=== PATIENT | female | born 1940 | race Caucasian/White ===

== ENCOUNTER → 2017-09-10 09:27 | Outpatient (CLI) | payer MEDICARE, OTHER, SELFPAY ==
[2017-09-10] VITALS (7 sets, daily range): BP systolic 117–134; BP diastolic 40–97; PULSE 68–75; RESP 18; TEMP 36.5; O2SAT 96–100
--- NOTE | 2017-09-10 09:30 | DI.RAD.S_ITS ---
PROCEDURE: PAIN L INTERLAMINAR/CAUDAL INJ INDICATIONS: spinal stenosis FINDINGS: Fluoroscopic spot filming was performed to verify placement of spinal needles at the L4-5 level(s), as labeled on the films. Appropriate location(s) of the needle tip(s) was confirmed by injection of iodinated contrast. IMPRESSION: Intraoperative injections with image verification. Dictated by: Palmer Mckeon M.D. on 09/10/2017 at 12:47 Approved by: Palmer Mckeon M.D. on 09/10/2017 at 12:48
--- NOTE | 2017-09-10 11:27 | P.PCN_ITS ---
Procedures Date/Time Date of procedure: 09/10/17 Time of procedure: 11:05 General Procedure description: PATIENT: Rosalinda Gibson DATE OF : 1940 DATE OF SURGERY: 09/10/2017 PROVIDER: Akhil Estrada DO Operative Note PREOP DIAGNOSIS 1. HNP WITH RADICULAR FEATURES, 2. MULTILEVEL CENTRAL STENOSIS, POST OP DIAGNOSIS 1. HNP WITH RADICULAR FEATURES, 2. MULTILEVEL CENTRAL STENOSIS, PROCEDURES 1. FLUORSCOPICALLY GUIDED CONTRAST CONTROLLED INTERLAMINAR EPIDURAL STEROID INJECTION - L5/S1 PHYSICIAN: Akhil Estrada DO INDICATIONs: [] is referred by [] for treatment of Bilateral Foraminal Stenosis R>L LE symptoms. FINDINGS Multilevel Central Spinal Stenosis with Nerve Root Compression DESCRIPTION OF PROCEDURE Fluoroscopically guided, contrast-controlled L5/S1 translaminar epidural steroid injection. Following denial of allergy and review of potential side effects and complications, including, but not necessarily limited to, infection, allergic reaction, local tissue breakdown, temporary as well as permanent nerve injury, paralysis, stroke and possible , the patient indicated that the patient understood and agreed to proceed. An informed consent document was signed by the patient, witnessed by a nurse, and placed in the patient's chart. Additionally, other treatment options including modalities, medications, and physical therapy were reviewed with the patient. Per the patient request, IV conscious sedation was administered via 3mg of Versed to patient comfort. The patient's vital signs were monitored throughout the procedure by both the nurse and the physician without significant fluctuation. The patient remained conversant throughout the procedure. In the prone position, following sterile prep and drape of the lumbar region, the L5/S1 translaminar space was identified fluoroscopically. The skin was anesthetized via a 25-gauge, 1.5-inch needle with 1% lidocaine solution. At this point, a 22-gauge short bevel spinal needle was atraumatically introduced and advanced under fluoroscopic guidance into the region of the L4/5 translaminar space. Depth was confirmed on lateral view. Radiological data, including multiple fluoroscopic views of the lumbar spine, reveal a spinal needle at the L5/S1 translaminar space. Lateral views then show placement of the needle in the epidural space. Subsequent views show contrast material flowing superiorly and inferiorly in the epidural space. No vascular or intrathecal uptake is observed. At this point, using loss of resistance technique with saline and air, the epidural space was entered. This was confirmed following negative aspiration with injection of approximately 1.5 cc of Isovue 200, showing excellent epidural flow without vascular or intrathecal uptake. At this point, 1 cc of 1 % lidocaine solution combined with 3 cc or 20 mg of dexamethasone and 80mg Depo medrol was injected without incident. The patient was then transferred to the recovery area where they were observed for an appropriate period of time after the injection. The patient reported a VAS score of 6 prior to the procedure and a post-procedure VAS of 0. Total Fluoroscopy Time: 21 seconds Total Conscious Sedation Time: 24min POST OP INSTRUCTIONS The patient was provided a Pain Log to continue to record their response to the target-specific procedure prior to follow-up visit with their referring physician. Additionally, specific post-injection care instructions and a contact number to our office were provided if concerns arise regarding possible complications associated with the procedure are suspected. Akhil Estrada DO Complications: none
[2017-09-10] MEDS: methylPREDNISolone acetate 80 MG/ML VIAL INJ (11:43)
[2017-09-10] MEDS: DEXAMETHASONE 10 MG/ML VIAL 20 MG INJ (11:43)
[2017-09-10] MEDS: BUPIVACAINE 0.25% (PF) 30 ML VIAL INJ (11:43)
[2017-09-10] MEDS: IOPAMIDOL 15 ML VIAL INJ (11:43)
[2017-09-10] MEDS: MIDAZOLAM 2 MG/2 ML VIAL 4 MG IV (11:43)
== END | disposition home or self-care (01) ==
PROVIDERS: PCP Internal Medicine; Visit Provider Physical Medicine & Rehabilitation
DX: M48.061 Spinal stenosis, lumbar region without neurogenic claudication (principal); M54.5 Low back pain; M54.17 Radiculopathy, lumbosacral region
CPT/HCPCS: 62323; 99152; J1040; J1100; J2250

== ENCOUNTER 2017-10-08 10:27 | Outpatient (CLI) | payer MEDICARE, OTHER, SELFPAY ==
[2017-10-08] VITALS (7 sets, daily range): BP systolic 123–144; BP diastolic 48–84; PULSE 64–86; RESP 10–18; TEMP 36.4; O2SAT 99–100
--- NOTE | 2017-10-08 10:28 | DI.RAD.S_ITS ---
PROCEDURE: PAIN L/SI FACET INJ/BLK 1STL INDICATIONS: SPONDYLOSIS STENOSIS AND DISC DEGENERATION FINDINGS: Fluoroscopic spot filming was performed to verify placement of spinal needles at the left L4-5 facet joint and the right L4-5 facet joint level(s), as labeled on the films. Appropriate location(s) of the needle tip(s) was confirmed by injection of iodinated contrast. IMPRESSION: Successful right and left L4-5 facet joint localization for presumed steroid injection. Dictated by: Gareth Regan M.D. on 10/08/2017 at 12:40 Approved by: Gareth Regan M.D. on 10/08/2017 at 12:41
--- NOTE | 2017-10-08 11:07 | P.PCN_ITS ---
Procedures Date/Time Date of procedure: 10/08/17 Time of procedure: 16:07 General Procedure description: PREOP DIAGNOSIS 1. FACET ARTHROPATHY 2. AXIAL LBP 3. MULTILEVEL DDD POST OP DIAGNOSIS 1. FACET ARTHROPATHY 2. AXIAL LBP 3. MULTILEVEL DDD PROCEDURES 1. FLUORSCOPICALLY GUIDED CONTRAST CONTROLLED FACET JOINT INJECTIONS BILATERAL L4/5, L5/S1 PHYSICIAN: Akhil Estrada, DO [place] Chantelle is referred by Dr. Jones for treatment of Axial LBP FINDINGS Multilevel Facet Arthropathy with Clinically significant axial LBP DESCRIPTION OF PROCEDURE Fluoroscopically guided, contrast-controlled bilateral L4/5 facet joint injections. Following denial of allergy and review of potential side effects and complications, including, but not necessarily limited to, infection, allergic reaction, local tissue breakdown, stroke, temporary or permanent nerve injury, paralysis, and possible , the patient indicated that the patient understood and agreed to proceed. An informed consent document was signed by the patient, witnessed by a nurse, and placed in the patient's chart. Additionally, other treatment options including medications, modalities, and physical therapy were reviewed with the patient. Per the patient request, IV conscious sedation was administered via 3mg of Versed to patient comfort. The patient's vital signs were monitored throughout the procedure by both the nurse and the physician without significant fluctuation. The patient remained conversant throughout the procedure. In the prone position, following sterile prep and drape of the lumbar region, the posterior aspect of the L4/5 facet joints were identified fluoroscopically. The skin was anesthetized via a 25-gauge 1.5-inch needle with 1% lidocaine solution into the corresponding facet joints. At this point, a 22-gauge 3.5- inch spinal needle was atraumatically introduced and advanced under fluoroscopic guidance into the corresponding facet joints. Following negative aspiration, injections of approximately 0.2-cc of Isovue 200 confirmed interarticular placement without vascular uptake. The identical procedure was then performed at the L4/5 facet joints on the left. Radiological data, including multiple fluoroscopic views of the lumbosacral spine, reveal a spinal needle at the L4/5 facet joints bilaterally. Subsequent views show flow of contrast material both superiorly and inferiorly within the joint space without vascular or intrathecal uptake. At this point, a total of 0.5 cc including a mixture of 0.25 cc Marcaine and 0.25 cc betamethasone was injected without complication into each of the corresponding facet joints. The patient was then transferred to the recovery area where they were observed for an appropriate period of time after the injection. The patient reported a VAS score of 7 prior to the procedure and a post-procedure VAS of 0. Total Fluoroscopy Time: 20.3 seconds Total Conscious Sedation Time: 24min POST OP INSTRUCTIONS The patient was provided a Pain Log to continue to record their response to the target-specific procedure prior to follow-up visit with their referring physician. Additionally, specific post-injection care instructions and a contact number to our office were provided if concerns arise regarding possible complications associated with the procedure are suspected. Akhil Estrada DO Complications: none
[2017-10-08] MEDS: MIDAZOLAM 5 MG/5 ML VIAL IV (11:25)
[2017-10-08] MEDS: IOPAMIDOL 15 ML VIAL 3 ML INJ (11:32)
[2017-10-08] MEDS: BETAMETHASONE 30 MG/5 ML MDV 12 MG INJ (11:32)
[2017-10-08] MEDS: LIDOCAINE 1% 20 ML INJ 10 ML INJ (11:32)
[2017-10-08] MEDS: BUPIVACAINE 0.5% (PF) 30 ML VIAL INJ (11:32)
== END 2017-10-08 12:07 | disposition home or self-care (01) ==
LOC: RAD 10:28
PROVIDERS: PCP Internal Medicine; Visit Provider Physical Medicine & Rehabilitation
DX: M47.816 Spondylosis without myelopathy or radiculopathy, lumbar region (principal); M48.061 Spinal stenosis, lumbar region without neurogenic claudication; M51.36 Other intervertebral disc degeneration, lumbar region
CPT/HCPCS: 64493; 99152; J0702; J2250

== ENCOUNTER → 2019-06-22 11:29 | Outpatient (CLI) | payer MEDICARE, OTHER, SELFPAY ==
--- NOTE | 2019-06-22 11:32 | DI.RAD.S_ITS ---
PROCEDURE: XR SHOULDER RT MIN 2V INDICATIONS: right shoulder pain TECHNIQUE: 3 views of the shoulder were acquired. COMPARISON: None. FINDINGS: Bones: No fractures or dislocations. Mild to moderate acromioclavicular joint and glenohumeral joint osteophytic changes are seen. No suspicious bony lesions. Visualized ribs appear intact. Soft tissues: Surgical clips are seen in right axilla. No suspicious soft tissue calcifications. 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 No shoulder fracture or dislocation. Dictated by: Derrell Wayne M.D. on 06/22/2019 at 13:00 Approved by: Derrell Wayne M.D. on 06/22/2019 at 13:04
--- NOTE | 2019-06-22 11:32 | DI.RAD.S_ITS ---
PROCEDURE: XR CERVICAL SPINE 2V OR 3V INDICATIONS: right shoulder pain TECHNIQUE: 3 view(s) of the cervical spine were acquired. COMPARISON: None. FINDINGS: Bones: No fractures or dislocations to the C7-T1 level. Grade 1 anterolisthesis of C3 on C4 is seen. Degenerative endplate changes and bilateral facet hypertrophic changes are noted throughout cervical spine more prominent at C4-5 and C6-7 levels. The lateral masses of C1 appear intact on the odontoid view. No suspicious bony lesions. Soft tissues: No prevertebral soft tissue swelling. IMPRESSION: Degenerative disc disease throughout cervical spine. No acute cervical spine fracture or dislocation. Grade 1 anterolisthesis of C3 on C4. Dictated by: Derrell Wayne M.D. on 06/22/2019 at 12:55 Approved by: Derrell Wayne M.D. on 06/22/2019 at 12:56
== END ==
PROVIDERS: PCP Internal Medicine; Referring Provider Physical Medicine & Rehabilitation; Visit Provider Physical Medicine & Rehabilitation
DX: M75.41 Impingement syndrome of right shoulder (principal); M25.511 Pain in right shoulder; M50.021 Cervical disc disorder at C4-C5 level with myelopathy; M43.12 Spondylolisthesis, cervical region; M19.011 Primary osteoarthritis, right shoulder
CPT/HCPCS: 72040; 73030; 99214

== ENCOUNTER 2020-08-10 13:30 | Outpatient (RCR) | payer MEDICARE, OTHER, SELFPAY ==
--- NOTE | 2020-07-19 15:00 | PT.OPPOC ---
Physical, Occupational & Speech Therapy At [facility] Current Diagnoses Dizziness and giddiness (07/19/20) Visit Care Team Role Provider Type Darien Vizcarra MD Family Provider Non-Staff Primary Care Provider Specialty: Family Practice Address: [address] [place] [address], [id number] Email: Jhoan Guaman MD Attending Provider Physician Referring Provider Specialty: Ear, Nose, Throat Address: [address] [place] [address], [id number] Email: [email or web address] Plan Of Care PT-OP-T Assessment and Plan Start: 07/19/20 07:37 Freq: Status: Active Protocol: Document 07/19/20 11:00 AMB (Rec: 07/20/20 08:12 AMB [email or web address]) Physical Therapy Assessment Rehab Potential Rehabilitation Potential Good Evaluation Complexity Number of Personal Factors/Comorbidities 1-2 Number of Body Systems Impaired 1-2 Clinical Presentation at Evaluation Stable Impairments Impairments Balance,Vestibular Goals Two Impairment Balance Short Term Goal (STG) Chantelle will complete a balance assessment considering her history of falls. STG Duration 4 weeks One Impairment Dizziness Short Term Goal (STG) Chantelle will roll over in bed without dizziness. STG Duration 4 weeks Entertainment Musician Goal (LTG) Chantelle will not have any dizziness or nystagmus with [place]-Hallpike. LTG Duration 6 weeks Assessment Summary Assessment Chantelle attends physical therapy with 3 month history of dizziness, especially with head movement, short in duration. Imaging was negative during ED visit. Positive for symptoms/ nystagmus with Left Sunil- Hallpike, did perform Amandeep maneuver 2x during eval, good tolerance, but did feel a bit of whirling when accidentally tilted head up slightly afterward, so will need to recheck. Overall signs and symptoms of L posterior canalithiasis, will follow up with treatment and then assess overall balance given pt's fall history. Physical Therapy Plan Frequency and Duration Frequency of Treatment 2x/Week Duration of Treatment 6 weeks Plan of Care Start Date 07/19/20 Plan of Care End Date 08/30/20 Therapeutic Interventions Therapeutic Interventions Balance Training,Canalithic Repositioning,Home Exercise Program,Neuromuscular Re- education,Self-Care/Home Management,Therapeutic Activities,Therapeutic Exercises,Vestibular Rehabilitation Next Visit Focus/Plan Next Note Type Treatment Note Next Visit Plan Ss[facility] Rogers Plan of Care Dates Plan of Care Start Date 07/19/20 Plan of Care End Date 08/30/20 Electronically Signed by: Louann Herrmann, PT 07/20/20 0813 Please Sign and Return: I have reviewed this Plan of Care and certify that the skilled therapy services above are required to meet the patient?s needs. Physician Signature Date Printed Name and Credentials Clinical Instructor Signature Printed Name and Credentials
--- NOTE | 2020-07-19 15:00 | PT.OIE ---
Current Diagnoses Dizziness and giddiness (07/19/20) Past Medical History (Last Reviewed 06/22/19 @ 11:01 by ROLDAN Jessica) Asthma Cancer Fracture Obesity Thyroid disease Trochanteric bursitis of right hip Past Surgical History (Last Reviewed 06/22/19 @ 11:01 by ROLDAN Jessica) History of bilateral mastectomy History of hysterectomy History of removal of both ovaries History of tonsillectomy Visit Care Team Role Provider Type Darien Vizcarra MD Family Provider Non-Staff Primary Care Provider Specialty: Family Practice Address: [address] [place] [address], [id number] Email: Jhoan Guaman MD Attending Provider Physician Referring Provider Specialty: Ear, Nose, Throat Address: [address] [place] [address], [id number] Email: [email or web address] Physical Therapy Initial Evaluation PT-OP-A Visit Information Start: 07/19/20 07:37 Freq: Status: Active Protocol: Document 07/19/20 11:00 AMB (Rec: 07/19/20 15:58 AMB [email or web address]) Out-Patient Physical Therapy Visit Information Visit Information Visit Type Initial Evaluation Visit Start Time 11:00 Visit Stop Time 11:45 Total Visit Minutes 45 Visit Number 1 PT-OP-B Current Condition Start: 07/19/20 07:37 Freq: Status: Active Protocol: Document 07/19/20 11:00 AMB (Rec: 07/19/20 11:21 AMB [id number]) Current Condition History of Current Condition Onset Date April 02, 2020 Current Complaints Dizziness History of Current Condition Went to ER because couldn't stand up due to dizziness. R ear is the one that seems to get pressure in it. Moving the head around increases dizziness, looking up doesn't last very long. Describes dizziness as lightheadedness and whirly. Denies nausea. Low grade headaches on the right side, intermittent. 3 falls in last year, one in last 3 months, tripping over garden hose. Prior Functional Status Baseline Function- ADL's Independent Baseline Function- Mobility Independent Personal Factors Other Personal Factors That May Effect osteoporosis, Therapy/Recovery PT-OP-O Vestibular Start: 07/19/20 07:37 Freq: Status: Active Protocol: Document 07/19/20 11:00 AMB (Rec: 07/20/20 08:12 AMB [email or web address]) Vestibular Assessment Screening Tests Vestibular Artery Screen Negative Sharp-Noah Test Negative Positional Testing Sunil-Hallpike Positive Left,Negative Right, Upbeating,< 60 Seconds Rolling Test Negative Left,Negative Right PT-OP-T Assessment and Plan Start: 07/19/20 07:37 Freq: Status: Active Protocol: Document 07/19/20 11:00 AMB (Rec: 07/20/20 08:12 AMB [email or web address]) Physical Therapy Assessment Rehab Potential Rehabilitation Potential Good Evaluation Complexity Number of Personal Factors/Comorbidities 1-2 Number of Body Systems Impaired 1-2 Clinical Presentation at Evaluation Stable Impairments Impairments Balance,Vestibular Goals Two Impairment Balance Short Term Goal (STG) Chantelle will complete a balance assessment considering her history of falls. STG Duration 4 weeks One Impairment Dizziness Short Term Goal (STG) Chantelle will roll over in bed without dizziness. STG Duration 4 weeks Coffee Shop Aide Goal (LTG) Chantelle will not have any dizziness or nystagmus with [place]-Hallpike. LTG Duration 6 weeks Assessment Summary Assessment Chantelle attends physical therapy with 3 month history of dizziness, especially with head movement, short in duration. Imaging was negative during ED visit. Positive for symptoms/ nystagmus with Left Sunil- Hallpike, did perform Amandeep manuever 2x during eval, good tolerance, but did feel a bit of whirling when accidently tilted head up slightly afterward, so will need to recheck. Overall signs and symptoms of L posterior canalithiasis, will follow up with treatment and then assess overall balance given pt's fall history. Physical Therapy Plan Frequency and Duration Frequency of Treatment 2x/Week Duration of Treatment 6 weeks Plan of Care Start Date 07/19/20 Plan of Care End Date 08/30/20 Therapeutic Interventions Therapeutic Interventions Balance Training,Canalithic Repositioning,Home Exercise Program,Neuromuscular Re- education,Self-Care/Home Management,Therapeutic Activities,Therapeutic Exercises,Vestibular Rehabilitation Next Visit Focus/Plan Next Note Type Treatment Note Next Visit Plan Recheck L Sunil-Hallpike
--- NOTE | 2020-07-25 15:46 | PT.OTN ---
Current Diagnoses Dizziness and giddiness (07/25/20) Physical Therapy Treatment Note PT-OP-A Visit Information Start: 07/19/20 07:37 Freq: Status: Active Protocol: Document 07/25/20 07:45 AMB (Rec: 07/25/20 11:08 AMB [id number]) Out-Patient Physical Therapy Visit Information Visit Information Visit Type Treatment Note Visit Start Time 07:45 Visit Stop Time 08:15 Total Visit Minutes 45 Visit Number 2 PT-OP-B Current Condition Start: 07/19/20 07:37 Freq: Status: Active Protocol: Document 07/19/20 11:00 AMB (Rec: 07/19/20 11:21 AMB [id number]) Current Condition History of Current Condition Onset Date April 02, 2020 Current Complaints Dizziness History of Current Condition Went to ER because couldn't stand up due to dizziness. R ear is the one that seems to get pressure in it. Moving the head around increases dizziness, looking up doesn't last very long. Describes dizziness as lightheadedness and whirly. Denies nausea. Low grade headaches on the right side, intermittent. 3 falls in last year, one in last 3 months, tripping over garden hose. Prior Functional Status Baseline Function- ADL's Independent Baseline Function- Mobility Independent Personal Factors Other Personal Factors That May Effect osteoporosis, Therapy/Recovery PT-OP-C Subjective Start: 07/19/20 07:37 Freq: Status: Active Protocol: Document 07/25/20 07:45 AMB (Rec: 07/25/20 11:08 AMB [id number]) OP-PT Subjective Patient Comments Patient Comments Chantelle states the whirlies are better but still there. She can look up and roll to the right just fine, but does still feel a bit off when moving from sit to stand and rolling to the left. PT-OP-O Vestibular Start: 07/19/20 07:37 Freq: Status: Active Protocol: Document 07/19/20 11:00 AMB (Rec: 07/20/20 08:12 AMB [email or web address]) Vestibular Assessment Screening Tests Vestibular Artery Screen Negative Sharp-Noah Test Negative Positional Testing Sunil-Hallpike Positive Left,Negative Right, Upbeating,< 60 Seconds Rolling Test Negative Left,Negative Right PT-OP-Q Treatments Start: 07/19/20 07:37 Freq: Status: Active Protocol: Document 07/25/20 07:45 AMB (Rec: 07/25/20 11:08 AMB [id number]) Canalithic Repositioning BPPV Treatment Amandeep Affected Canal(s) L Reps 2 Comments No nystagmus noted, pt pt was symptomatic, not as much as at eval, but more so than with DixHallpike R PT-OP-T Assessment and Plan Start: 07/19/20 07:37 Freq: Status: Active Protocol: Document 07/25/20 07:45 AMB (Rec: 07/25/20 11:08 AMB [id number]) Physical Therapy Assessment Assessment Summary Assessment Chantelle did not show nystagmus with Amandeep but was symptomatic, so was treated. Will assess next visit, and if continued no nystagmus and continued sx will assess more VOR/ balance assessment. Physical Therapy Plan Next Visit Focus/Plan Next Note Type Treatment Note Next Visit Plan L Sunil-Hallpike and then check VOR
--- NOTE | 2020-08-03 08:53 | PT.OTN ---
Current Diagnoses Dizziness and giddiness (08/03/20) Physical Therapy Treatment Note PT-OP-A Visit Information Start: 07/19/20 07:37 Freq: Status: Active Protocol: Document 08/03/20 08:15 AMB (Rec: 08/03/20 08:48 AMB [id number]) Out-Patient Physical Therapy Visit Information Visit Information Visit Type Treatment Note Visit Start Time 08:15 Visit Stop Time 09:00 Total Visit Minutes 45 Visit Number 3 PT-OP-B Current Condition Start: 07/19/20 07:37 Freq: Status: Active Protocol: Document 07/19/20 11:00 AMB (Rec: 07/19/20 11:21 AMB [id number]) Current Condition History of Current Condition Onset Date April 02, 2020 Current Complaints Dizziness History of Current Condition Went to ER because couldn't stand up due to dizziness. R ear is the one that seems to get pressure in it. Moving the head around increases dizziness, looking up doesn't last very long. Describes dizziness as lightheadedness and whirly. Denies nausea. Low grade headaches on the right side, intermittent. 3 falls in last year, one in last 3 months, tripping over garden hose. Prior Functional Status Baseline Function- ADL's Independent Baseline Function- Mobility Independent Personal Factors Other Personal Factors That May Effect osteoporosis, Therapy/Recovery PT-OP-C Subjective Start: 07/19/20 07:37 Freq: Status: Active Protocol: Document 08/03/20 08:15 AMB (Rec: 08/03/20 08:48 AMB [id number]) OP-PT Subjective Patient Comments Patient Comments She did get dizzy when coming up from cleaning the toilet, but otherwise has not been dizzy, no dizziness rolling over in bed or when looking up . PT-OP-O Vestibular Start: 07/19/20 07:37 Freq: Status: Active Protocol: Document 07/19/20 11:00 AMB (Rec: 07/20/20 08:12 AMB [email or web address]) Vestibular Assessment Screening Tests Vestibular Artery Screen Negative Sharp-Noah Test Negative Positional Testing Sunil-Hallpike Positive Left,Negative Right, Upbeating,< 60 Seconds Rolling Test Negative Left,Negative Right PT-OP-Q Treatments Start: 07/19/20 07:37 Freq: Status: Active Protocol: Document 08/03/20 08:15 AMB (Rec: 08/03/20 08:48 AMB [id number]) Neuro Re-Education Treatment Vestibular Rehabilitation VOR Retraining Background plain Reps/Duration 2 min Other Activities 1 Details L Amandeep Comments asymptomatic PT-OP-T Assessment and Plan Start: 07/19/20 07:37 Freq: Status: Active Protocol: Document 08/03/20 08:15 AMB (Rec: 08/03/20 08:48 AMB [id number]) Physical Therapy Assessment Assessment Summary Assessment No nystagmus with Amandeep. Did have some symptoms, but skin fitter today. Physical Therapy Plan Next Visit Focus/Plan Next Note Type Treatment Note Next Visit Plan Recheck VOR, assess headache
--- NOTE | 2020-08-10 15:00 | PT.OTN ---
Current Diagnoses Dizziness and giddiness (08/10/20) Physical Therapy Treatment Note PT-OP-A Visit Information Start: 07/19/20 07:37 Freq: Status: Active Protocol: Document 08/10/20 13:30 AMB (Rec: 08/10/20 16:03 AMB [email or web address]) Out-Patient Physical Therapy Visit Information Visit Information Visit Type Treatment Note Visit Start Time 13:30 Visit Stop Time 14:10 Total Visit Minutes 40 Visit Number 4 PT-OP-B Current Condition Start: 07/19/20 07:37 Freq: Status: Active Protocol: Document 07/19/20 11:00 AMB (Rec: 07/19/20 11:21 AMB [id number]) Current Condition History of Current Condition Onset Date April 02, 2020 Current Complaints Dizziness History of Current Condition Went to ER because couldn't stand up due to dizziness. R ear is the one that seems to get pressure in it. Moving the head around increases dizziness, looking up doesn't last very long. Describes dizziness as lightheadedness and whirly. Denies nausea. Low grade headaches on the right side, intermittent. 3 falls in last year, one in last 3 months, tripping over garden hose. Prior Functional Status Baseline Function- ADL's Independent Baseline Function- Mobility Independent Personal Factors Other Personal Factors That May Effect osteoporosis, Therapy/Recovery PT-OP-C Subjective Start: 07/19/20 07:37 Freq: Status: Active Protocol: Document 08/10/20 13:30 AMB (Rec: 08/14/20 09:03 AMB [email or web address]) OP-PT Subjective Patient Comments Patient Comments Chantelle felt a litte off at times but very rarely and doesn't have any more spinning . PT-OP-O Vestibular Start: 07/19/20 07:37 Freq: Status: Active Protocol: Document 07/19/20 11:00 AMB (Rec: 07/20/20 08:12 AMB [email or web address]) Vestibular Assessment Screening Tests Vestibular Artery Screen Negative Sharp-Noah Test Negative Positional Testing [place]-Hallpike Positive Left,Negative Right, Upbeating,< 60 Seconds Rolling Test Negative Left,Negative Right PT-OP-Q Treatments Start: 07/19/20 07:37 Freq: Status: Active Protocol: Document 08/10/20 13:30 AMB (Rec: 08/14/20 09:03 AMB [email or web address]) Neuro Re-Education Treatment Vestibular Rehabilitation VOR Retraining Background plain Reps/Duration 2 min Comments WBOS then NBOS Other Activities 2 Details Salvatore Mcnulty Comments for habituation 1 Details L Amandeep Comments asymptomatic PT-OP-T Assessment and Plan Start: 07/19/20 07:37 Freq: Status: Active Protocol: Document 08/10/20 13:30 AMB (Rec: 08/14/20 09:03 AMB [email or web address]) Physical Therapy Assessment Goals Two Impairment Balance Short Term Goal (STG) Chantelle will complete a balance assessment considering her history of falls. STG Duration 4 weeks One Impairment Dizziness Short Term Goal (STG) Chantelle will roll over in bed without dizziness. STG Duration MET Group Home Goal (LTG) Chantelle will not have any dizziness or nystagmus with Sunil-Hallpike. LTG Duration MET Assessment Summary Assessment Chantelle did not have any nystagmus today, she had slight feeling of being off with Hafsa to the L, so did give as a habituation HEP. Explained it can take a while to feel completely normal again, but she should call if true spinning dizziness returns. Physical Therapy Plan Hold Physical Therapy Reason For Hold BPPV sx seem resolved, hold for one month to make sure, pt to call/email if needs further appts, if not will d/c in on month
--- NOTE | 2020-09-13 08:08 | PT.OPDS ---
Current Diagnoses Dizziness and giddiness (08/10/20) Visit Care Team Role Provider Type Darien Vizcarra MD Family Provider Non-Staff Primary Care Provider Specialty: Family Practice Address: [address] [place] [address], [id number] Email: Jhoan Guaman MD Attending Provider Physician Referring Provider Specialty: Ear, Nose, Throat Address: [address] [place] [address], [id number] Email: [email or web address] Visit Number Visit Number 4 Discharge Summary PT-OP-B Current Condition Start: 07/19/20 07:37 Freq: Status: Active Protocol: Document 07/19/20 11:00 AMB (Rec: 07/19/20 11:21 AMB [id number]) Current Condition History of Current Condition Onset Date April 02, 2020 Current Complaints Dizziness History of Current Condition Went to ER because couldn't stand up due to dizziness. R ear is the one that seems to get pressure in it. Moving the head around increases dizziness, looking up doesn't last very long. Describes dizziness as lightheadedness and whirly. Denies nausea. Low grade headaches on the right side, intermittent. 3 falls in last year, one in last 3 months, tripping over garden hose. Prior Functional Status Baseline Function- ADL's Independent Baseline Function- Mobility Independent Personal Factors Other Personal Factors That May Effect osteoporosis, Therapy/Recovery PT-OP-C Subjective Start: 07/19/20 07:37 Freq: Status: Active Protocol: Document 08/10/20 13:30 AMB (Rec: 08/14/20 09:03 AMB [email or web address]) OP-PT Subjective Patient Comments Patient Comments Chantelle felt a litte off at times but very rarely and doesn't have any more spinning . PT-OP-O Vestibular Start: 07/19/20 07:37 Freq: Status: Active Protocol: Document 07/19/20 11:00 AMB (Rec: 07/20/20 08:12 AMB [email or web address]) Vestibular Assessment Screening Tests Vestibular Artery Screen Negative Sharp-Noah Test Negative Positional Testing [place]-Hallpike Positive Left,Negative Right, Upbeating,< 60 Seconds Rolling Test Negative Left,Negative Right PT-OP-T Assessment and Plan Start: 07/19/20 07:37 Freq: Status: Active Protocol: Document 09/13/20 08:07 AMB (Rec: 09/13/20 08:08 AMB [email or web address]) Physical Therapy Assessment Goals Two Impairment Balance Short Term Goal (STG) Chantelle will complete a balance assessment considering her history of falls. STG Duration 4 weeks One Impairment Dizziness Short Term Goal (STG) Chantelle will roll over in bed without dizziness. STG Duration MET Lithographic Artist Goal (LTG) Chantelle will not have any dizziness or nystagmus with Sunil-Hallpike. LTG Duration MET Physical Therapy Plan Discharge Physical Therapy Discharge Reasons Goals Met Next Visit Focus/Plan Next Visit Plan Chantelle did not have any signs of active BPPV at last visit. She was put on hold for 1 month and told to contact the office if she had any return of symptoms. She has not contacted the office, therefore she is discharged at this time.
== END 2020-09-13 08:26 | disposition home or self-care (01) ==
LOC: PHYS 13:30
PROVIDERS: Family Provider Family Medicine; PCP Family Medicine; Referring Provider Otolaryngology; Visit Provider Otolaryngology
DX: R42 Dizziness and giddiness (principal)
CPT/HCPCS: 95992; 97112; 97161

== ENCOUNTER → 2022-03-23 08:41 | Outpatient (CLI) | payer MEDICARE, OTHER, SELFPAY ==
--- NOTE | 2022-03-23 08:42 | DI.RAD.S_ITS ---
PROCEDURE: XR KNEE RT 3V INDICATIONS: RIGHT KNEE PAIN TECHNIQUE: 3 views of the knee were acquired. COMPARISON: None. FINDINGS: Bones: No fractures or dislocations. Mild degenerative changes. No suspicious bony lesions. Soft tissues: No joint effusion. No suspicious soft tissue calcifications. IMPRESSION: Mild degenerative changes. Dictated by: Spencer Pacheco M.D. on 03/23/2022 at 11:44 Approved by: Spencer Pacheco M.D. on 03/23/2022 at 11:45
--- NOTE | 2022-03-23 08:42 | DI.RAD.S_ITS ---
PROCEDURE: XR LUMBAR SPINE MIN 4V INDICATIONS: BACK PAIN TECHNIQUE: 5 views of the lumbar spine were acquired, including bilateral oblique views. COMPARISON: None. FINDINGS: Bones: 5 nonrib-bearing vertebrae are present. There is 9 mm anterolisthesis of L4 on L5. Loss of disc height, degenerative endplate changes and bilateral facet arthrosis throughout lumbar spine is seen most notably at L4-5 and L5-S1 levels.. No vertebral body compression fractures. No suspicious bony lesions. Soft tissues: Overlying bowel gas pattern is normal. No suspicious soft tissue calcifications. Surgical clips are seen in the region of bilateral breasts suggest clinical correlation. Oblique images: No pars defects. IMPRESSION: Degenerative disc disease throughout lumbar spine most notably at L4-5 and L5-S1 levels. No acute compression fracture. 9 mm anterolisthesis of of L4 on L5. No gross pars defects seen on oblique views. Dictated by: Derrell Wayne M.D. on 03/23/2022 at 9:13 on 03/23/2022 at 9:11 a.m. Approved by: Derrell Wayne M.D. on 03/23/2022 at 9:13
== END ==
PROVIDERS: Family Provider Family Medicine; PCP Family Medicine; Referring Provider Physical Medicine & Rehabilitation; Visit Provider Physical Medicine & Rehabilitation
DX: M25.561 Pain in right knee (principal); M51.36 Other intervertebral disc degeneration, lumbar region; M51.37 Other intervertebral disc degeneration, lumbosacral region; M43.16 Spondylolisthesis, lumbar region; M48.061 Spinal stenosis, lumbar region without neurogenic claudication
CPT/HCPCS: 72110; 73562

== ENCOUNTER 2022-04-10 12:15 | Outpatient (CLI) | payer MEDICARE, OTHER, SELFPAY ==
[2022-04-10] VITALS (9 sets, daily range): BP systolic 98–137; BP diastolic 53–61; PULSE 64–77; RESP 16–21; TEMP 36.9; O2SAT 99–100
--- NOTE | 2022-04-10 12:18 | DI.RAD.S_ITS ---
PROCEDURE: PAIN L/S TRANSFORAMINAL INJECT INDICATIONS: SPONDYLOSIS COMPARISON: [facility], CR, XR LUMBAR SPINE MIN 4V, 03/23/2022, 8:51. FINDINGS: Fluoroscopic spot filming was performed to verify placement of a spinal needle at the L4-L5 level, as labeled on the films. Appropriate location of the needle tip was confirmed by injection of iodinated contrast. IMPRESSION: Intraprocedural examination within normal limits. Dictated by: Lizandro Zacarias M.D. on 04/10/2022 at 13:08 Approved by: Lizandro Zacarias M.D. on 04/10/2022 at 13:08
[2022-04-10] MEDS: MIDAZOLAM 2 MG/2 ML VIAL IV (13:27)
[2022-04-10] MEDS: BUPIVACAINE 0.5% (PF) VIAL 5 ML SUBCUT (13:32)
[2022-04-10] MEDS: IOPAMIDOL 15 ML VIAL 3 ML INJ (13:33)
[2022-04-10] MEDS: DEXAMETHASONE 10 MG/ML VIAL 20 MG INJ (13:34)
[2022-04-10] MEDS: BETAMETHASONE 30 MG/5 ML MDV 6 MG INJ (13:34)
--- NOTE | 2022-04-10 13:43 | P.PCN_ITS ---
Date/Time/Diagnoses Date of procedure: 04/10/22 Time of procedure: 13:43 Pre-procedure diagnosis: 1. FORAMINAL STENOSIS WITH LE SYMPTOMS Post-procedure diagnosis: same Procedure Notes Procedure: 1. FLUOROSCOPICALLY GUIDED CONTRAST CONTROLLED TRANSFORAMINAL EPIDURAL STEROID INJECTION - RIGHT L4/5 TFESI Indications: Chantelle is referred by Dr. Vizcarra for treatment of Foraminal Stenosis with Right LE Symptoms Physician: Akhil Estrada Total Fluoroscopy time (seconds): 10 Total sedation minutes: 12 Complications: none Procedure in detail & Post-procedure care: FINDINGS Foraminal Nerve Root Compression secondary to disc disease and facet hypertrophy DESCRIPTION OF PROCEDURE Following review of allergy and review of potential side effects and complications, including, but not necessarily limited to, infection, allergic reaction, local tissue breakdown, stroke, temporary or permanent nerve injury, paralysis, and possible , the patient indicated that the patient understood and agreed to proceed. An informed consent document was signed by the patient, witnessed by a nurse, and placed in the patient's chart. Additionally, other treatment options including medications, modalities, and physical therapy were reviewed with the patient. After review of previous anaesthesic history and IV conscious sedation the patient was deemed safe to proceed with today?s procedure with IV conscious sedation as ASA class II designation. Safety time-out was performed to confirm patient ID, procedure to be performed and site of procedure. IV sedation was accomplished with a combination of 2mg of Versed was administered by the RN after DO order, titrated to patient comfort during the course of the procedure while the patient remained responsive to all verbal commands In the prone position following sterile prep and drape of the lumbar region, the right L4/5 posterior neuroforamen was identified fluoroscopically. The skin was anesthetized via a 25-gauge 1.5-inch needle with 1% lidocaine solution. At this point, a 25-gauge 3.5-inch spinal needle was atraumatically introduced and advanced under fluoroscopic guidance through the posterior right L4/5 neuroforamen to approximately the anterior aspect of the canal. Depth was confirmed on lateral view. Following negative aspiration, injection of approximately 1.5cc of Isovue 200 under live fluoroscopy in the AP view confirmed excellent flow along the nerve root, into the epidural space without vascular or intrathecal uptake observed Radiological data, including multiple fluoroscopic views of the lumbosacral s pine, reveal a spinal needle at the right L4/5 posterior neuroforamen. Subsequent views show flow of contrast material flowing superiorly and inferiorly along the nerve root confirming epidural flow. Subsequently, a test dose of 1.5 cc of 1% lidocaine solution was administered and patient was observed for two minutes for signs or symptoms of complications, including abdominal pain, shortness of breath, bilateral upper or lower extremity weakness, nausea and vomiting, prior to steroid injection. At this point, a total of 3cc or 20mg of dexamethasone and 6mg of betamethasone was injected without incident. The procedure tolerated the procedure well without signs or symptoms of complications prior to transfer to the recovery area continued monitoring without incident. The patient was then transferred to the recovery area where they were observed for an appropriate time after the injection. The patient reported a VAS score of 7 prior to the procedure and a post- procedure VAS of 0. POST OP INSTRUCTIONS The patient was provided a Pain Log to continue to record their response to the target-specific procedure prior to follow-up visit with their referring physician. Additionally, specific post-injection care instructions and a contact number to our office were provided if concerns arise regarding possible complications associated with the procedure are suspected.
== END 2022-04-10 14:07 | disposition home or self-care (01) ==
PROVIDERS: Family Provider Family Medicine; PCP Family Medicine; Referring Provider Physical Medicine & Rehabilitation; Visit Provider Physical Medicine & Rehabilitation
DX: M48.061 Spinal stenosis, lumbar region without neurogenic claudication (principal); M51.16 Intervertebral disc disorders with radiculopathy, lumbar region
CPT/HCPCS: 64483; 99152; J0702; J1100; J2250; J3490

== ENCOUNTER → 2022-07-16 10:47 | Outpatient (CLI) | payer MEDICARE, SELFPAY ==
--- NOTE | 2022-07-16 10:48 | DI.MRI.S_ITS ---
PROCEDURE: MR LUMBAR SPINE WO CON INDICATIONS: Low back pain right lower extremity radicular features TECHNIQUE: Noncontrast sagittal T1 spin echo and T2 fast echo, sagittal STIR, and T2 fast spin echo through the lumbar spine. In cases with scoliosis, additional coronal T2 fast spin echo may be performed. COMPARISON: [facility], CR, XR LUMBAR SPINE MIN 4V, 03/23/2022, 8:51. [facility], MR, L-SPINE WITHOUT CONTRAST, 04/17/2017, 13:59. FINDINGS: Image quality: Excellent. Alignment and Curvature: There is grade 1 L4 on L5 anterolisthesis which is slightly increased in extent when compared with the study dated April 17, 2017. Otherwise normal spinal alignment. Bone Marrow: Marrow is of normal overall signal. A moderate compression deformity is present at the L1 vertebral body which is new when compared with the prior study from 2017. There is approximately 40% vertebral body height loss. No focal marrow edema at the margins of the fracture. A subtle STIR/T2 hyperintense focus is present within the right aspect of the L1 vertebral body which was present on the 2017 study suggesting a small intraosseous hemangioma. Spinal Cord: Conus medullaris terminates at the L1 level. Visualized cord demonstrates normal signal and size. Paraspinous Soft Tissues: 2 large T2 hyperintense right upper quadrant lesions are redemonstrated suggesting the presence of large hepatic cysts which are incompletely characterized on this limited view. There is a questionable circumscribed 1.8 cm lesion within the right sacrum (series 6/image 32). This is incompletely characterized on the limited view of the pelvis. T12-L1: Mild disc desiccation and height loss. Broad-based disc bulge. No foraminal stenosis. L1-L2: Mild disc desiccation and height loss. Broad-based disc bulge. Mild facet and ligamentum flavum hypertrophy. No canal stenosis. L2-L3: Mild disc desiccation and height loss. Broad-based disc bulge. Moderate facet and ligamentum flavum hypertrophy. No canal stenosis. Mild bilateral neural foraminal stenosis. L3-L4: Mild disc desiccation and height loss. Moderate facet and ligamentum flavum hypertrophy. No canal stenosis. Moderate bilateral foraminal stenosis. L4-L5: Severe disc desiccation and height loss. Anterolisthesis. Severe facet and ligamentum flavum hypertrophy. Severe canal stenosis. Severe right and mild left foraminal narrowing. These findings are increased in extent when compared with the MRI dated April 17, 2017. L5-S1: Mild disc desiccation. Broad-based disc bulge. Moderate facet sclerosis. No canal stenosis. Mild bilateral foraminal stenosis. IMPRESSION: 1. Large T2 hyperintense, presumably cystic lesions within the liver which are incompletely characterized. If further characterization is warranted, ultrasound or CT of the liver could be used. 2. New compression deformity along the right superior L1 endplate when compared with the 2017 study. The acuity of this finding is unknown; however there is no discrete marrow edema along the margins of the fracture suggesting this is a chronic process. 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 3. Severe disc desiccation and height loss, anterolisthesis, and severe facet and ligamentum flavum hypertrophy at L4-5 with resultant severe canal stenosis, increased in extent when compared with the 2017 study. 4. Severe right L4-5 foraminal stenosis. 5. No other significant foraminal narrowing or canal stenosis of the lumbar spine. Dictated by: Iveth Olivarez M.D. on 07/16/2022 at 12:30 Approved by: Iveth Olivarez M.D. on 07/16/2022 at 12:58
== END ==
PROVIDERS: Family Provider Family Medicine; PCP Family Medicine; Referring Provider Physical Medicine & Rehabilitation; Visit Provider Physical Medicine & Rehabilitation
DX: M48.061 Spinal stenosis, lumbar region without neurogenic claudication (principal); M43.16 Spondylolisthesis, lumbar region; M48.56XA Collapsed vertebra, not elsewhere classified, lumbar region, initial encounter for fracture; D18.09 Hemangioma of other sites
CPT/HCPCS: 72148

== ENCOUNTER 2022-08-30 09:43 | Outpatient (CLI) | payer MEDICARE, SELFPAY ==
[2022-08-30] VITALS (7 sets, daily range): BP systolic 116–147; BP diastolic 52–79; PULSE 64–72; RESP 15–23; TEMP 37; O2SAT 99–100
--- NOTE | 2022-08-30 09:44 | DI.RAD.S_ITS ---
PROCEDURE: PAIN L/S TRANSFORAMINAL INJECT INDICATIONS: SPONDYLOSIS COMPARISON: [facility], , PAIN L/S TRANSFORAMINAL INJECT, 04/10/2022, 14:31. FINDINGS: Fluoroscopic spot filming was performed to verify placement of a spinal needle at the L4-L5 level, as labeled on the films. Appropriate location of the needle tip was confirmed by injection of iodinated contrast. IMPRESSION: Intraprocedural examination within normal limits. Dictated by: Lizandro Zacarias M.D. on 08/30/2022 at 15:07 Approved by: Lizandro Zacarias M.D. on 08/30/2022 at 15:07
[2022-08-30] MEDS: MIDAZOLAM 2 MG/2 ML VIAL IV (10:56)
[2022-08-30] MEDS: IOPAMIDOL 15 ML VIAL 3 ML INJ (11:03)
[2022-08-30] MEDS: BETAMETHASONE 30 MG/5 ML MDV 6 MG INJ (11:04)
[2022-08-30] MEDS: BUPIVACAINE 0.25% (PF) VIAL 2 ML INJ (11:04)
[2022-08-30] MEDS: DEXAMETHASONE 10 MG/ML VIAL 20 MG INJ (11:04)
--- NOTE | 2022-08-30 11:12 | P.PCN_ITS ---
Date/Time/Diagnoses Date of procedure: 08/30/22 Time of procedure: 11:12 Pre-procedure diagnosis: 1. FORAMINAL STENOSIS WITH LE SYMPTOMS Post-procedure diagnosis: same Procedure Notes Procedure: 1. FLUOROSCOPICALLY GUIDED CONTRAST CONTROLLED TRANSFORAMINAL EPIDURAL STEROID INJECTION - RIGHT L4/5 TFESI Indications: Chantelle is referred by Dr. Vizcarra for treatment of Foraminal Stenosis with Right LE Symptoms Physician: Akhil Estrada Total Fluoroscopy time (seconds): 12 Total sedation minutes: 13 Complications: none Procedure in detail & Post-procedure care: FINDINGS Foraminal Nerve Root Compression secondary to disc disease and facet hypertrophy DESCRIPTION OF PROCEDURE Following review of allergy and review of potential side effects and complications, including, but not necessarily limited to, infection, allergic reaction, local tissue breakdown, stroke, temporary or permanent nerve injury, paralysis, and possible , the patient indicated that the patient understood and agreed to proceed. An informed consent document was signed by the patient, witnessed by a nurse, and placed in the patient's chart. Additionally, other treatment options including medications, modalities, and physical therapy were reviewed with the patient. After review of previous anaesthesic history and IV conscious sedation the patient was deemed safe to proceed with today?s procedure with IV conscious sedation as ASA class II designation. Safety time-out was performed to confirm patient ID, procedure to be performed and site of procedure. IV sedation was accomplished with a combination of 2mg of Versed was administered by the RN after DO order, titrated to patient comfort during the course of the procedure while the patient remained responsive to all verbal commands In the prone position following sterile prep and drape of the lumbar region, the right L4/5 posterior neuroforamen was identified fluoroscopically. The skin was anesthetized via a 25-gauge 1.5-inch needle with 1% lidocaine solution. At this point, a 25-gauge 3.5-inch spinal needle was atraumatically introduced and advanced under fluoroscopic guidance through the posterior right L4/5 neuroforamen to approximately the anterior aspect of the canal. Depth was confirmed on lateral view. Following negative aspiration, injection of approximately 1.5cc of Isovue 200 under live fluoroscopy in the AP view confirmed excellent flow along the nerve root, into the epidural space without vascular or intrathecal uptake observed Radiological data, including multiple fluoroscopic views of the lumbosacral s pine, reveal a spinal needle at the right L4/5 posterior neuroforamen. Subsequent views show flow of contrast material flowing superiorly and inferiorly along the nerve root confirming epidural flow. Subsequently, a test dose of 1.5 cc of 1% lidocaine solution was administered and patient was observed for two minutes for signs or symptoms of complications, including abdominal pain, shortness of breath, bilateral upper or lower extremity weakness, nausea and vomiting, prior to steroid injection. At this point, a total of 3cc or 20mg of dexamethasone and 6mg of betamethasone was injected without incident. The procedure tolerated the procedure well without signs or symptoms of complications prior to transfer to the recovery area continued monitoring without incident. The patient was then transferred to the recovery area where they were observed for an appropriate time after the injection. The patient reported a VAS score of 7 prior to the procedure and a post- procedure VAS of 0. POST OP INSTRUCTIONS The patient was provided a Pain Log to continue to record their response to the target-specific procedure prior to follow-up visit with their referring physician. Additionally, specific post-injection care instructions and a contact number to our office were provided if concerns arise regarding possible complications associated with the procedure are suspected.
== END 2022-08-30 11:43 | disposition home or self-care (01) ==
PROVIDERS: Family Provider Family Medicine; PCP Family Medicine; Referring Provider Physical Medicine & Rehabilitation; Visit Provider Physical Medicine & Rehabilitation
DX: M48.061 Spinal stenosis, lumbar region without neurogenic claudication (principal); M51.16 Intervertebral disc disorders with radiculopathy, lumbar region
CPT/HCPCS: 64483; 99152; J0702; J1100; J2250; J3490

== ENCOUNTER → 2022-09-14 09:33 | Outpatient (CLI) | payer MEDICARE, SELFPAY ==
--- NOTE | 2022-09-14 09:34 | DI.RAD.S_ITS ---
PROCEDURE: XR HIP W PEL IF DONE RT 2V INDICATIONS: Hip pain TECHNIQUE: AP pelvis with lateral view(s) of the right hip(s). COMPARISON: [facility], XR PELVIS WITH LATERAL HIP RIGHT, 01/28/2017, 14:50. FINDINGS: Bones: No fractures or dislocations. Pelvic ring appears intact. No suspicious bony lesions. Moderate bilateral degenerative hip joint space narrowing. Heterotopic is noted overlying the greater trochanter right. Degenerative changes are present within the lower lumbar spine. Soft tissues: The visualized bowel gas pattern is normal. No suspicious soft tissue calcifications. IMPRESSION: Bilateral hip and spine arthritic change. Dictated by: Jade Boyd M.D. on 09/14/2022 at 15:19 Approved by: Jade Boyd M.D. on 09/14/2022 at 15:19
--- NOTE | 2022-09-14 09:34 | DI.RAD.S_ITS ---
PROCEDURE: XR KNEE RT 3V INDICATIONS: Knee pain TECHNIQUE: 3 views of the knee were acquired. COMPARISON: [facility], CR, XR KNEE RT 3V, 03/23/2022, 8:51. FINDINGS: Bones: No fractures or dislocations. No suspicious bony lesions. Moderate tricompartmental in through triage will through radially. No erosions or periarticular osteophytes. Slight lateral patellar subluxation Soft tissues: No joint effusion. No suspicious soft tissue calcifications. IMPRESSION: Overall moderate tricompartmental arthritic change most severe medially. Dictated by: Jade Boyd M.D. on 09/14/2022 at 15:19 Approved by: Jade Boyd M.D. on 09/14/2022 at 15:20
== END ==
PROVIDERS: Family Provider Family Medicine; PCP Family Medicine; Referring Provider Nurse Practitioner Family; Visit Provider Nurse Practitioner Family
DX: M19.90 Unspecified osteoarthritis, unspecified site (principal)
CPT/HCPCS: 73502; 73562

== ENCOUNTER 2022-12-06 08:42 | Outpatient (CLI) | payer MEDICARE, SELFPAY ==
[2022-12-06] VITALS (9 sets, daily range): BP systolic 83–138; BP diastolic 47–80; PULSE 53–63; RESP 14–24; TEMP 37.1; O2SAT 99–100
--- NOTE | 2022-12-06 08:45 | DI.RAD.S_ITS ---
PROCEDURE: PAIN L/S TRANSFORAMINAL INJECT INDICATIONS: SPONDYLOSIS COMPARISON: [facility], , PAIN L/S TRANSFORAMINAL INJECT, 08/30/2022, 10:59. FINDINGS: Fluoroscopic spot filming was performed to verify placement of a spinal needle at the L4-L5 level, as labeled on the films. Appropriate location of the needle tip was confirmed by injection of iodinated contrast. IMPRESSION: Intraprocedural examination within normal limits. Dictated by: Lizandro Zacarias M.D. on 12/06/2022 at 13:31 Approved by: Lizandro Zacarias M.D. on 12/06/2022 at 13:32
[2022-12-06] MEDS: MIDAZOLAM 2 MG/2 ML VIAL IV (09:33)
[2022-12-06] MEDS: BETAMETHASONE 30 MG/5 ML MDV 6 MG INJ (09:36)
[2022-12-06] MEDS: DEXAMETHASONE 10 MG/ML VIAL INJ (09:36)
[2022-12-06] MEDS: IOPAMIDOL 15 ML VIAL 3 ML INJ (09:36)
[2022-12-06] MEDS: BUPIVACAINE 0.25% (PF) VIAL 2 ML INJ (09:37)
--- NOTE | 2022-12-06 09:56 | P.PCN_ITS ---
Date/Time/Diagnoses Date of procedure: 12/06/22 Time of procedure: 09:56 Pre-procedure diagnosis: 1. FORAMINAL STENOSIS WITH LE SYMPTOMS Post-procedure diagnosis: same Procedure Notes Procedure: 1. FLUOROSCOPICALLY GUIDED CONTRAST CONTROLLED TRANSFORAMINAL EPIDURAL STEROID INJECTION - RIGHT L4/5 TFESI Indications: Chantelle is referred by Dr. Vizcarra for treatment of Foraminal Stenosis with Right LE Symptoms Physician: Akhil Estrada Total Fluoroscopy time (seconds): 25 Total sedation minutes: 19 Complications: none Procedure in detail & Post-procedure care: FINDINGS Foraminal Nerve Root Compression secondary to disc disease and facet hypertrophy DESCRIPTION OF PROCEDURE Following review of allergy and review of potential side effects and complications, including, but not necessarily limited to, infection, allergic reaction, local tissue breakdown, stroke, temporary or permanent nerve injury, paralysis, and possible , the patient indicated that the patient understood and agreed to proceed. An informed consent document was signed by the patient, witnessed by a nurse, and placed in the patient's chart. Additionally, other treatment options including medications, modalities, and physical therapy were reviewed with the patient. After review of previous anaesthesic history and IV conscious sedation the patient was deemed safe to proceed with today?s procedure with IV conscious sedation as ASA class II designation. Safety time-out was performed to confirm patient ID, procedure to be performed and site of procedure. IV sedation was accomplished with a combination of 2mg of Versed was administered by the RN after DO order, titrated to patient comfort during the course of the procedure while the patient remained responsive to all verbal commands In the prone position following sterile prep and drape of the lumbar region, the right L4/5 posterior neuroforamen was identified fluoroscopically. The skin was anesthetized via a 25-gauge 1.5-inch needle with 1% lidocaine solution. At this point, a 25-gauge 3.5-inch spinal needle was atraumatically introduced and advanced under fluoroscopic guidance through the posterior right L4/5 neuroforamen to approximately the anterior aspect of the canal. Depth was confirmed on lateral view. Following negative aspiration, injection of approximately 1.5cc of Isovue 200 under live fluoroscopy in the AP view confirmed excellent flow along the nerve root, into the epidural space without vascular or intrathecal uptake observed. Radiological data, including multiple fluoroscopic views of the lumbosacral sp ine, reveal a spinal needle at the right L4/5 posterior neuroforamen. Subsequent views show flow of contrast material flowing superiorly and inferiorly along the nerve root confirming epidural flow. Subsequently, a test dose of 1.5 cc of 1% lidocaine solution was administered and patient was observed for two minutes for signs or symptoms of complications, including abdominal pain, shortness of breath, bilateral upper or lower extremity weakness, nausea and vomiting, prior to steroid injection. At this point, a total of 2cc or 10mg of dexamethasone and 6mg of betamethasone was injected without incident. The procedure tolerated the procedure well without signs or symptoms of complications prior to transfer to the recovery area continued monitoring without incident. The patient was then transferred to the recovery area where they were observed for an appropriate time after the injection. The patient reported a VAS score of 7 prior to the procedure and a post- procedure VAS of 1. POST OP INSTRUCTIONS The patient was provided a Pain Log to continue to record their response to the target-specific procedure prior to follow-up visit with their referring physician. Additionally, specific post-injection care instructions and a contact number to our office were provided if concerns arise regarding possible complications associated with the procedure are suspected.
== END 2022-12-06 10:15 | disposition home or self-care (01) ==
LOC: RAD 08:45
PROVIDERS: Family Provider Family Medicine; PCP Family Medicine; Referring Provider Physical Medicine & Rehabilitation; Visit Provider Physical Medicine & Rehabilitation
DX: M48.061 Spinal stenosis, lumbar region without neurogenic claudication (principal); M51.16 Intervertebral disc disorders with radiculopathy, lumbar region; M47.26 Other spondylosis with radiculopathy, lumbar region
CPT/HCPCS: 64483; 99152; J0702; J1100; J2250; J3490

== ENCOUNTER → 2023-05-06 11:18 | Outpatient (CLI) | payer MEDICARE, SELFPAY ==
--- NOTE | 2023-05-06 11:19 | DI.RAD.S_ITS ---
PROCEDURE: XR CERVICAL SPINE 4V OR 5V INDICATIONS: NECK PAIN TECHNIQUE: 5 views of the cervical spine acquired. COMPARISON: [facility], CR, XR CERVICAL SPINE 2V OR 3V, 06/22/2019, 11:36. FINDINGS: Bones: No fractures or dislocations to the T1 level. Oblique images demonstrate no bony foraminal stenoses. Moderate to severe disc height loss at C4-5. Moderate disc height loss at the C5-6, C6-7. Diffuse facet arthrosis, most prominent at C2-3, C3-4 and C4-5. Soft tissues: No prevertebral soft tissue swelling. IMPRESSION: Mild to moderate, multilevel degenerative disc disease and diffuse facet arthrosis. Dictated by: Elliot Early M.D. on 05/06/2023 at 13:12 Approved by: Elliot Early M.D. on 05/06/2023 at 13:12
== END ==
PROVIDERS: Family Provider Family Medicine; PCP Family Medicine; Referring Provider Physical Medicine & Rehabilitation; Visit Provider Physical Medicine & Rehabilitation
DX: M47.812 Spondylosis without myelopathy or radiculopathy, cervical region (principal); M50.321 Other cervical disc degeneration at C4-C5 level
CPT/HCPCS: 72050

== ENCOUNTER → 2023-05-13 14:55 | Outpatient (CLI) | payer MEDICARE, SELFPAY ==
--- NOTE | 2023-05-13 14:58 | DI.MRI.S_ITS ---
PROCEDURE: MR CERVICAL SPINE WO CON INDICATIONS: Left upper extremity radiculopathy TECHNIQUE: Noncontrast sagittal T1 spin echo and T2 fast spin echo, sagittal STIR, foraminal oblique sagittal T2 fast spin echo, and axial gradient echo or T2 fast spin echo through the cervical spine. COMPARISON: None. FINDINGS: Image quality: Excellent. Alignment and Curvature: There is straightening of normal cervical lordosis. Minimal 2 mm anterolisthesis of C3 on C4 is seen. Bone Marrow: There is no marrow edema. No acute vertebral body compression fracture. Spinal Cord: Visualized spinal cord has normal size and signal. No cerebellar tonsillar herniation. Paraspinous Soft Tissues: No paravertebral masses. Prevertebral soft tissues are normal in thickness. C2-C3: Loss of disc signal. No significant disc bulge, canal stenosis or neural foraminal narrowing. C3-C4: Loss of disc signal. Broad-based disc bulge and bilateral facet hypertrophic changes are noted causing mild bilateral neural foraminal narrowing, no significant central canal stenosis. C4-C5: There is loss of disc height and disc signal. Broad-based disc bulge and bilateral facet hypertrophic changes are seen causing moderate central canal stenosis and left-sided neural foraminal narrowing. Mild right-sided neural foraminal narrowing is also seen. C5-C6: There is loss of disc signal and disc height. Broad-based disc bulge and bilateral facet hypertrophic changes are seen causing [id number] central canal stenosis and mild bilateral neural foraminal narrowing. C6-C7: Loss of disc height and disc signal is seen. Broad-based disc bulge and bilateral facet hypertrophic changes are noted with mild central canal stenosis and moderate bilateral neural foraminal narrowing worse on the right side. C7-T1: Loss of disc signal. No significant disc bulge, canal stenosis or neural foraminal narrowing. IMPRESSION: 1. Degenerative disc disease at C3-4 through C6-7 levels causing [id number] central canal stenosis and bilateral neural foraminal narrowing as described in detail above. 2. No acute fracture or dislocation. Minimal anterolisthesis of C3 on C4. 3. No abnormal cervical spinal cord signal. Dictated by: Derrell Wayne M.D. on 05/13/2023 at 17:16 Approved by: Derrell Wayne M.D. on 05/13/2023 at 17:19
--- NOTE | 2023-05-13 15:17 | DI.MRI.S_ITS ---
PROCEDURE: MR SHOULDER LT WO CON INDICATIONS: Left upper extremity cuff tear TECHNIQUE: Noncontrast oblique coronal T2 fast spin echo with fat saturation, oblique sagittal T1 spin echo and T2 fast spin echo with fat saturation, axial T1 spin echo and T2 fast spin echo with fat saturation through the shoulder. COMPARISON: None. FINDINGS: Image quality: Excellent. Rotator cuff: Moderate grade articular and bursal surface partial thickness tear involving distal supraspinatus at its insertion on the humeral head is seen extending to musculotendinous junction. Distal infraspinatus and subscapularis tendinosis is seen. No full-thickness rotator cuff tendon rupture. Sagittal images demonstrate mild supraspinatus muscle atrophy. Bones and bursae: No bone marrow contusions or fractures. Moderate acromioclavicular joint osteoarthritic changes are seen with joint space narrowing and downward osteophyte formation depressing the musculotendinous junction of supraspinatus. Moderate glenohumeral joint osteoarthritic changes also seen with subcortical cystic changes seen in anterior inferior glenoid. The acromion demonstrates conventional anatomy, without an os acromiale. Moderate joint effusion and subacromial subdeltoid bursal fluid is seen, no gross loose bodies. Capsule and soft tissues: There is fraying of anterior inferior labrum with T2 hyperintense signal at 4 to 6 o'clock position suggestive of anterior-inferior labral tear. The long head of the biceps tendon appears thickened. The rotator interval appears normal, without fibrosis. The coracohumeral ligament is normal in thickness. IMPRESSION: 1. Moderate grade articular and bursal surface partial thickness tear involving distal supraspinatus extending to musculotendinous junction. Distal infraspinatus and subscapularis tendinosis. No full-thickness rotator cuff tendon rupture. Mild supraspinatus muscle atrophy. 2. 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 No fracture or dislocation. Moderate amount of subacromial subdeltoid bursal fluid, no gross loose bodies. 3. Suggestion of anterior inferior labral tear at 4 to 6 o'clock position. 4. Proximal long head of biceps tendinosis. Dictated by: Derrell Wayne M.D. on 05/13/2023 at 16:54 Approved by: Derrell Wayne M.D. on 05/13/2023 at 16:57
== END ==
LOC: MRI 14:56
PROVIDERS: Family Provider Family Medicine; PCP Family Medicine; Referring Provider Physical Medicine & Rehabilitation; Visit Provider Physical Medicine & Rehabilitation
DX: M50.11 Cervical disc disorder with radiculopathy, high cervical region (principal); M48.02 Spinal stenosis, cervical region; M75.112 Incomplete rotator cuff tear or rupture of left shoulder, not specified as traumatic; M19.012 Primary osteoarthritis, left shoulder
CPT/HCPCS: 72141; 73221

== ENCOUNTER → 2023-06-19 09:18 | Outpatient (CLI) | payer MEDICARE, SELFPAY ==
--- NOTE | 2023-06-19 09:20 | DI.MRI.S_ITS ---
PROCEDURE: MR ORBITS FACE NECK WO/W CON INDICATIONS: Other visual disturbances TECHNIQUE: Noncontrast sagittal T1 spin echo, axial FLAIR, axial gradient echo, axial diffusion and ADC acquired through the brain. Coronal STIR, thin-slice axial T1 spin echo through the orbits. After the administration of contrast, thin-slice axial and coronal T1 spin echo with fat saturation through the orbits, axial and coronal and sagittal T1 spin echo with fat saturation through the brain. COMPARISON: None. FINDINGS: Image quality: Diagnostic, with note made of motion artifact. Orbits: Globes are symmetrical. Note is made of bilateral lens replacements. The optic nerves are normal in size, without abnormal signal or enhancement. No retrobulbar masses or fat abnormalities. The extra-ocular muscles are normal and symmetric in appearance. Lacrimal glands are normal. Optic chiasm is normal. Periorbital soft tissues appear normal. CSF spaces: Ventricles are normal in size and shape. Basal cisterns are patent. No extra-axial fluid collections. Brain: No intracranial bleeds or mass effects. No abnormal intracranial enhancement. Rosen-white matter interface is intact. Diffusion weighted images demonstrate no acute ischemic insults. Pituitary gland appears normal, without sellar or suprasellar masses. Brainstem appears normal. Normal intravascular flow voids are present. Note is made of age-appropriate brain parenchymal volume loss and chronic small vessel ischemic changes. Skull and face: Calvarial marrow is normal in signal. Sinuses: Sinuses and mastoids are clear. IMPRESSION: No imaging explanation is found for this patient's presenting symptoms. No significant orbital abnormality can be seen. No masses or abnormal enhancement can be seen, including within the orbits. No findings of acute or subacute infarction can be seen. No prior territorial infarct can be seen. Dictated by: Lizandro Zacarias M.D. on 06/19/2023 at 9:40 Approved by: Lizandro Zacarias M.D. on 06/19/2023 at 9:42
== END ==
LOC: MRI 09:19
PROVIDERS: Family Provider Family Medicine; PCP Family Medicine; Referring Provider Ophthalmology; Visit Provider Ophthalmology
DX: H53.8 Other visual disturbances (principal)
CPT/HCPCS: 70543

== ENCOUNTER 2025-01-12 12:26 | Outpatient (CLI) | payer MEDICARE, SELFPAY ==
[2025-01-12] VITALS (8 sets, daily range): BP systolic 91–116; BP diastolic 51–59; PULSE 64–73; RESP 14–18; TEMP 37.1; O2SAT 98–100
[2025-01-12] MEDS: MIDAZOLAM 2 MG/2 ML VIAL IV (13:23)
[2025-01-12] MEDS: BETAMETHASONE 30 MG/5 ML MDV 12 MG INJ (13:30)
--- NOTE | 2025-01-12 13:41 | P.PCN_ITS ---
Date/Time/Diagnoses Date of procedure: 01/12/25 Time of procedure: 13:42 Pre-procedure diagnosis: 1. FORAMINAL STENOSIS WITH LE SYMPTOMS Post-procedure diagnosis: same Procedure Notes Procedure: 1. FLUOROSCOPICALLY GUIDED CONTRAST CONTROLLED TRANSFORAMINAL EPIDURAL STEROID INJECTION - LEFT L4/5 Indications: Chantelle is referred by Dr. Vizcarra for treatment of Foraminal Stenosis with Left LE Symptoms Physician: Akhil Estrada Total Fluoroscopy time (seconds): 10 Total sedation minutes: 14 Complications: none Procedure in detail & Post-procedure care: FINDINGS Foraminal Nerve Root Compression secondary to disc disease and facet hypertrophy DESCRIPTION OF PROCEDURE Following review of allergy and review of potential side effects and complications, including, but not necessarily limited to, infection, allergic reaction, local tissue breakdown, stroke, temporary or permanent nerve injury, paralysis, and possible , the patient indicated that the patient understood and agreed to proceed. An informed consent document was signed by the patient, witnessed by a nurse, and placed in the patient's chart. Additionally, other treatment options including medications, modalities, and physical therapy were reviewed with the patient. After review of previous anaesthesic history and IV conscious sedation the patient was deemed safe to proceed with today?s procedure with IV conscious sedation as ASA class II designation. Safety time-out was performed to confirm patient ID, procedure to be performed and site of procedure. IV sedation was accomplished with a combination of 2mg of Versed administered by the RN after DO order, titrated to patient comfort during the course of the procedure while the patient remained responsive to all verbal commands In the prone position following sterile prep and drape of the lumbar region, the left L4/5 posterior neuroforamen was identified fluoroscopically. The skin was anesthetized via a 25-gauge 1.5-inch needle with 1% lidocaine solution. At this point, a 25-gauge 3.5-inch spinal needle was atraumatically introduced and advanced under fluoroscopic guidance through the posterior left L4/5 neuroforamen to approximately the anterior aspect of the canal. Depth was confirmed on lateral view. Following negative aspiration, injection of approximately 1.5 cc of Isovue 200 under live fluoroscopy in the AP view confirmed excellent flow along the nerve root, into the epidural space without vascular or intrathecal uptake observed Radiological data, including multiple fluoroscopic views of the lumbosacral spine, reveal a spinal needle at the left L4/5 posterior neuroforamen. Subsequent views show flow of contrast material flowing superiorly and inferiorly along the nerve root confirming epidural flow. Subsequently, a test dose of 1.5cc of 0.25% marcaine solution was administered and patient was observed for two minutes for signs or symptoms of complications, including abdominal pain, shortness of breath, bilateral upper or lower extremity weakness, nausea and vomiting, prior to steroid injection. At this point, a total of 3cc or 10mg of dexamethasone and 12mg of betamethasone was injected without incident. The procedure tolerated the procedure well without signs or symptoms of complications prior to transfer to the recovery area continued monitoring without incident. The patient was then transferred to the recovery area where they were observed for an appropriate time after the injection. The patient reported a VAS score of 7 prior to the procedure and a post- procedure VAS of 0. POST OP INSTRUCTIONS The patient was provided a Pain Log to continue to record their response to the target-specific procedure prior to follow-up visit with their referring physicia n. Additionally, specific post-injection care instructions and a contact number to our office were provided if concerns arise regarding possible complications associated with the procedure are suspected.
== END 2025-01-12 13:50 | disposition home or self-care (01) ==
LOC: RAD 12:27
PROVIDERS: PCP Family Medicine; Referring Provider Physical Medicine & Rehabilitation; Visit Provider Physical Medicine & Rehabilitation
DX: M48.061 Spinal stenosis, lumbar region without neurogenic claudication (principal); M51.16 Intervertebral disc disorders with radiculopathy, lumbar region; M47.26 Other spondylosis with radiculopathy, lumbar region
CPT/HCPCS: 64483; 99152; J0702; J1100; J2250

== ENCOUNTER → 2025-03-22 12:06 | Outpatient (CLI) | payer MEDICARE, SELFPAY ==
--- NOTE | 2025-03-22 12:08 | DI.CT.S_ITS ---
PROCEDURE: CT ABDOMEN PELVIS W CON INDICATIONS: RT side abdominal pain TECHNIQUE: After the administration of intravenous contrast, axial sections acquired from the lung bases to the pubic symphysis. Coronal and sagittal reformats were performed. For radiation dose reduction, the following was used: automated exposure control, adjustment of mA and/or kV according to patient size. COMPARISON: [facility], MR, MR LUMBAR SPINE WO CON, 07/16/2022, 11:01. FINDINGS: Quality: Diagnostic. Lower Chest: Unremarkable. Abdomen: Liver: Multiple large simple cysts the largest measures 9.1 x 9.0 x 7.0 cm in the posterior right lobe. Additional subcentimeter hypoattenuating lesions which are too small to characterize but also likely represent additional cysts. Additional ill-defined hypoattenuating lesion measuring 1.5 cm which cannot be classified as a simple cyst segment 8 near the IVC.. Gallbladder and bile ducts: No pericholecystic fluid. Common bile duct measures 1.1 cm. Mild intrahepatic biliary duct dilation.. Pancreas: Unremarkable. Spleen: Unremarkable. Adrenal Glands: Unremarkable. Kidneys and Ureters: Unremarkable. Stomach: Marsha-en-Y gastric bypass. Bowel: No evidence of obstruction. Diverticulosis without evidence of inflammation. No wall thickening. Normal appendix. Peritoneum: No free fluid. No free air. Pelvis: Reproductive: Hysterectomy.. Bladder: Unremarkable. Other: Lymphatic: No adenopathy. Vasculature: No aortic aneurysm. Severe atherosclerosis. Abdominal wall: Intact. Bones: No aggressive osseous lesion. Severe degenerative changes in the lumbar spine with grade 1 anterolisthesis at L4-L5. Multiple faint sclerotic osseous lesions which are rounded for instance in the posterior right acetabula, L3, L2, and T12 vertebral bodies. IMPRESSION: Biliary duct dilation with no visible obstructing lesion. New sclerotic osseous lesions which may be metastases. Further evaluation with nuclear medicine bone scan or MRI recommended. Indeterminate liver lesion. Further evaluation with MRI recommended Dictated by: Patrice Victor M.D. on 03/22/2025 at 13:49 Approved by: Patrice Victor M.D. on 03/22/2025 at 14:05
== END ==
LOC: CT 12:07
PROVIDERS: PCP Family Medicine; Referring Provider Family Medicine; Visit Provider Surgery
DX: K76.89 Other specified diseases of liver (principal); R10.9 Unspecified abdominal pain; K83.8 Other specified diseases of biliary tract; K57.90 Diverticulosis of intestine, part unspecified, without perforation or abscess without bleeding; M47.816 Spondylosis without myelopathy or radiculopathy, lumbar region; M43.16 Spondylolisthesis, lumbar region; M89.9 Disorder of bone, unspecified; Z90.710 Acquired absence of both cervix and uterus; Z98.84 Bariatric surgery status
CPT/HCPCS: 74177; Q9967